=== PATIENT | male | born 1985 | race Caucasian/White ===

== ENCOUNTER 2017-07-13 21:25 | Emergency (ER) | payer OTHER ==
[~2017-07-13] VITALS: Ht 185.4 cm; Wt 87.0 kg
[2017-07-13 22:12] VITALS: BP 119/58; PULSE 80; RESP 16; TEMP 98.5; O2SAT 98
[2017-07-13] MEDS ORDERED: NORC5TAB PO (23:08)
[2017-07-13] MEDS ORDERED: SILV1CRE20 TOPICAL (23:08)
[2017-07-13] MEDS ORDERED: IBUP-232 PO (23:08)
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
[2017-07-13] MEDS ORDERED: TETANUS/DIPHTHERIA TOXOID ADULT 0.5 ML VIAL IM ONE (23:15)
[2017-07-13] MEDS ORDERED: ACETAMINOPHEN/HYDROcodone 325 MG/5 MG TAB PO ONE (23:15)
[2017-07-13] MEDS ORDERED: SILVER SULFADIAZINE 1% CR 50 GM JAR TOPICAL ONE (23:15)
[2017-07-13 23:38] VITALS: RESP 18
[2017-07-13 23:42] VITALS: BP 120/78
== END 2017-07-13 23:45 | disposition home or self-care (01) ==
LOC: PHEFT 21:25
DX: T23.251A Burn of second degree of right palm, initial encounter (principal); S60.412A Abrasion of right middle finger, initial encounter; Z23 Encounter for immunization; X10.2XXA Contact with fats and cooking oils, initial encounter; Y92.000 Kitchen of unspecified non-institutional (private) residence as the place of occurrence of the external cause
CPT/HCPCS: 90471; 90714